=== PATIENT | male | born 1935 | race Two or more races ===

== ENCOUNTER 2018-08-23 17:30 | Emergency (ER) | payer OTHER ==
[~2018-08-23] VITALS: Ht 175.3 cm; Wt 79.4 kg
[~2018-08-23 17:30] MED LIST: ARICEPT10 MG; VOLTAREN-XR100 MG PO; VYTORIN 10-101 EACH
== END 2018-08-23 21:11 | disposition home or self-care (01) ==
LOC: EMR PED 17:30 → ER 17:46 → EMR PED 17:46 → ER 21:11
DX: I82.492 Acute embolism and thrombosis of other specified deep vein of left lower extremity (principal)

== ENCOUNTER 2018-08-24 15:03 | Outpatient (CLI) | payer OTHER | END 2018-08-24 15:12 | disposition home or self-care (01) | LOC: NUCLEAR 15:03 | DX: I82.403 Acute embolism and thrombosis of unspecified deep veins of lower extremity, bilateral (principal) ==

== ENCOUNTER → 2019-03-12 06:19 | Outpatient (CLI) | payer OTHER | END | disposition home or self-care (01) | LOC: LAB 06:19 | DX: N30.00 Acute cystitis without hematuria (principal); R31.1 Benign essential microscopic hematuria; I80.00 Phlebitis and thrombophlebitis of superficial vessels of unspecified lower extremity; F41.8 Other specified anxiety disorders; G47.00 Insomnia, unspecified; G47.30 Sleep apnea, unspecified; I70.0 Atherosclerosis of aorta; E03.8 Other specified hypothyroidism; E78.49 Other hyperlipidemia; I11.9 Hypertensive heart disease without heart failure; Z51.81 Encounter for therapeutic drug level monitoring ==

== ENCOUNTER 2019-03-12 08:20 | Outpatient (CLI) | payer OTHER | END 2019-03-12 08:40 | disposition home or self-care (01) | LOC: TOM 08:20 | DX: R31.1 Benign essential microscopic hematuria (principal) | CPT/HCPCS: 74178; Q9965 ==

== ENCOUNTER 2020-07-19 19:28 | Emergency (ER) | payer OTHER ==
[~2020-07-19] VITALS: Ht 175.3 cm; Wt 81.6 kg
== END 2020-07-19 22:47 | disposition home or self-care (01) ==
LOC: ER 19:28
DX: N40.0 Benign prostatic hyperplasia without lower urinary tract symptoms (principal); R33.8 Other retention of urine

== ENCOUNTER 2020-07-28 15:23 | Emergency (ER) | payer OTHER ==
[~2020-07-28] VITALS: Ht 172.7 cm; Wt 68.0 kg
[2020-07-28] MEDS ORDERED: SYNTHROID50 MCG (15:46)
[2020-07-28] MEDS ORDERED: TAMS0.4C (15:47)
[2020-07-28] MEDS ORDERED: LOSARTAN POTASS25 MG (15:52)
[2020-07-28] MEDS ORDERED: VYTORIN 10-201 EACH (15:52)
[2020-07-28] MEDS ORDERED: BACTRIM DS TAB1 EACH PO (20:31)
== END 2020-07-28 20:42 | disposition home or self-care (01) ==
LOC: ER 15:23
DX: N39.0 Urinary tract infection, site not specified (principal); B34.9 Viral infection, unspecified; Z20.828 Contact with and (suspected) exposure to other viral communicable diseases

== ENCOUNTER 2020-08-22 08:05 | Outpatient (CLI) | payer OTHER ==
[~2020-08-22 08:05] MED LIST changes: +BACTRIM DS TAB1 EACH PO; +LOSARTAN POTASS25 MG; +SYNTHROID50 MCG; +TAMS0.4C; +VYTORIN 10-201 EACH
== END 2020-08-22 08:33 | disposition home or self-care (01) ==
LOC: NUCLEAR 08:05
PROVIDERS: ATTEND Urology
DX: I25.10 Atherosclerotic heart disease of native coronary artery without angina pectoris (principal); R97.20 Elevated prostate specific antigen [PSA]; R31.0 Gross hematuria; I65.29 Occlusion and stenosis of unspecified carotid artery; I10 Essential (primary) hypertension; R07.89 Other chest pain
CPT/HCPCS: 78452; 93017; 93880; A9500; J0153

== ENCOUNTER 2021-09-10 00:54 | Emergency (ER) | payer OTHER ==
[~2021-09-10] VITALS: Ht 175.3 cm; Wt 86.2 kg
[2021-09-10] MEDS ORDERED: ZOLPIDEM TARTR3.5 MG (01:15)
[2021-09-10] MEDS ORDERED: PROSCAR5 MG (01:16)
[2021-09-10] MEDS ORDERED: OMEGA-31000 MG (01:16)
[2021-09-10] MEDS ORDERED: RIVASTIGMINE3 MG (01:16)
[2021-09-10] MEDS ORDERED: SERTRALINE20 MG/1 ML (01:16)
[2021-09-10] MEDS ORDERED: MEDI-MECLIZINE25 MG PO (03:33)
== END 2021-09-10 03:38 | disposition home or self-care (01) ==
LOC: ER 00:54
DX: R42 Dizziness and giddiness (principal)